=== PATIENT | male | born 1985 | race African-American/Black ===

== ENCOUNTER 2022-01-25 02:42 | Observation (INO) ==
[2022-01-25] MEDS ORDERED: SODIUM CHLORIDE 0.9% 1000ML 1,000 ML IV SCH ×2 (03:15→05:30)
[2022-01-25 03:43] LABS: Eosinophils # (auto) 0.07 K/uL (0-0.5); Hematocrit (blood only) 44.1 % (42-52); Hemoglobin 15.4 g/dL (14.0-18.0); Immature Granulocytes # (auto) 0.01 K/uL (0.00-0.02); Immature Granulocytes % (auto) 0.1 %; Lymphocytes # (auto) 2.98 K/uL (1.2-3.4); Lymphocytes % (auto) 42.2 %; Mean Corpuscular Hemoglobin 30.4 pg (25-34); Mean Corpuscular Hgb Conc 34.9 g/dL (32-36); Mean Platelet Volume 9.2 fL (7.4-10.4); Monocytes # (auto) 0.66 K/uL (0.11-0.59); Monocytes % (auto) 9.3 %; Neutrophils # (auto) 3.34 K/uL (1.4-6.5); Neutrophils % (auto) 47.4 %; Platelet Count 259 K/uL (130-400); RDW Coefficient of Variation 13.3 % (11.5-14.5); RDW Standard Deviation 42.1 fL (36.4-46.3); Red Blood Count 5.07 M/uL (4.7-6.1); White Blood Count 7.06 K/uL (4.8-10.8)
[2022-01-25 03:51] LABS: Partial Thromboplastin Ratio 1.3; Partial Thromboplastin Time 36.4 Seconds (21.0-31.0); Prothrombin Time 10.5 Seconds (9.0-12.0)
[2022-01-25 04:04] LABS: Calcium 9.3 mg/dl (8.5-10.1); Creatinine Clr Calc Pharmacy 156.8 ml/min; Est GFR (African American) 100.7 ml/min; Est GFR (Non-African American) 86.9 ml/min
[2022-01-25 04:07] LABS: Troponin I High Sensitivity 6.1 pg/ml (0-20)
[2022-01-25 04:12] LABS: Albumin Globulin Ratio 1.2 (0.9-2); Albumin Level 4.4 gm/dl (3.4-5.0); Bilirubin,Total 0.3 mg/dl (0.2-1.0); Globulin 3.8 gm/dl (2.5-4.0); Magnesium 1.9 mg/dl (1.7-2.4); Phosphorus 3.8 mg/dl (2.5-4.9); Total Protein 8.2 gm/dl (6.0-8.3)
[2022-01-25 04:28] LABS: Lyme Ab IgG w/WB Rflx Negative (Negative); Lyme Ab IgM w/WB Rflx Negative (Negative)
[2022-01-25 04:32] LABS: Appearance Urine Clear (Clear); Bilirubin Urine Negative (Negative); Blood Urine Negative (Negative); Color Urine Yellow; Glucose Urine UA Negative (Negative); Ketones Urine Negative (Negative); Leukocyte Esterase Urine Negative (Negative); Nitrite Urine Negative (Negative); Protein Urine Negative (Negative); Specific Gravity Urine 1.026 (1.000-1.030); Urobilinogen Urine Negative (Negative)
[2022-01-25] MEDS ORDERED: OPTIRAY 320 125ml IV ONE (04:46)
[2022-01-25 04:59] LABS: Amphetamines+Metham, Urine Neg (Neg); Barbiturates, Urine Neg (Neg); Benzodiazepine, Urine Neg (Neg); Cocaine, Urine Neg (Neg); MDMA (Ecstacy), Urine Neg (Neg); Methadone, Urine Neg (Neg); Opiate, Urine Neg (Neg); Phencyclidine, Urine Neg (Neg)
--- NOTE | 2022-01-25 07:00 | Emergency Department Note ---
History of Present Illness General Chief complaint: Pain (Generalized) Stated complaint: MUSCLE PAIN, CRAMPING, LOSS OF APPETITE Time Seen by Provider: 01/25/22 02:56 History of Present Illness This is a 36-year-old male presenting to the emergency department for evaluation of decreased appetite, difficulty sleeping, and body aches. The patient has a history of seizures and did have a breakthrough seizure 5 days ago. He is on Keppra and is reportedly taking his medication as prescribed. The patient states that since his breakthrough seizure he has felt worse each day. He states that approximately 5 PM, more than 8 hours prior to arrival, he felt like he had some difficulty speaking. He has been able to move his arms and legs without difficulty. He does have injury to the left side tongue from his seizure the other day that is still healing. The patient does not have any chest pain, chest tightness, or shortness of breath. No fevers or chills. He is not vaccinated against COVID-19. He rates his current discomfort an 8/10. Home Medications Medication Instructions Recorded Confirmed Type levetiracetam 1,000 mg tablet 1,000 mg PO BID 01/20/22 01/25/22 History Allergies Allergy/AdvReac Type Severity Reaction Status Date / Time No Known Allergies Allergy Verified 01/25/22 03:08 Past Med/Surg History Medical History Seizure disorder Surgical History No significant past surgical history Social History Smoking Status: Never smoker Preferred Language: Sinhala Feels Safe at Home: Yes Review of Systems A total of 10 systems reviewed and were otherwise negative Physical Exam Vital Signs Vital Signs - 24 hr 01/25/22 02:49 01/25/22 03:29 01/25/22 03:36 Temperature 36.4 C L Temperature Source Temporal Artery Scan Pulse Rate 99 H 92 H Pulse Rate [Apical] 96 H Pulse Rhythm Regular Respiratory Rate 18 21 20 Respiratory Effort / Characteristics Non-Labored Spontaneous Non-Labored Spontaneous Respiratory Depth Normal Normal Blood Pressure 147/104 H Blood Pressure [Right Arm] 130/96 Blood Pressure Mean 118 Blood Pressure Mean [Right Arm] 107 Pulse Oximetry 96 97 96 Oxygen Delivery Method Room Air Room Air Room Air Sepsis Recent Fever Within 48 Hours No Sepsis New/Unexplained Change in Mental Status No Sepsis Action Taken by Nursing No Action Required 01/25/22 05:40 01/25/22 06:00 Temperature 36.9 C Temperature Source Oral Pulse Rate Pulse Rate [Apical] 88 98 H Pulse Rhythm Respiratory Rate 20 24 Respiratory Effort / Characteristics Non-Labored Non-Labored Spontaneous Respiratory Depth Normal Normal Blood Pressure Blood Pressure [Right Arm] 134/93 151/95 H Blood Pressure Mean Blood Pressure Mean [Right Arm] 106 113 Pulse Oximetry 98 98 Oxygen Delivery Method Room Air Room Air Sepsis Recent Fever Within 48 Hours Sepsis New/Unexplained Change in Mental Status Sepsis Action Taken by Nursing VITALS: Vitals are noted on the nurse's note and reviewed by myself. Vital signs stable. GENERAL: Morbidly obese male who is having difficulty with speech. He is words are not slurred, however he seems to have difficulty finding his words. He is intermittently using text to speech on his cell phone to communicate. HEAD: Normocephalic atraumatic. EARS: External ear normal. External auditory canals clear, tympanic membranes pearly gaines without erythema or effusion bilaterally. EYES: Pupils equal round and reactive to light and accommodation. Conjunctivae without injection, sclerae without icterus. Extraocular movements intact. NOSE: Patent, turbinates without inflammation or discharge. MOUTH: Mucous membranes moist. Tonsils are not enlarged. Pharynx without erythema, blood, or exudate. Uvula midline. Airway patent. Tongue does not deviate. There is injury on the left side tongue consistent with bite from seizure last week. NECK: Supple without nuchal rigidity. No lymphadenopathy. No thyromegaly. Cervical spine is nontender. HEART: Regular rate and rhythm without murmurs gallops or rubs. LUNGS: Clear to auscultation bilaterally without wheezes, rales or rhonchi. No retractions or accessory muscle use. MUSCULOSKELETAL: No muscle atrophy, erythema, or edema noted. Full range of motion in all extremities. Strength is 5/5 throughout. No pronator drift. NEURO: Patient was alert and oriented to person place and time. Stroke scale is 2 with mild aphasia and mild dysarthria. SKIN: The skin was without rashes, erythema, edema, or bruising. Capillary refill less than 2 seconds. Course Administered Medications Discontinued Medications Sodium Chloride (Nss 1000ml) 1,000 mls @ 999 mls/hr IV .Q1H1M ROBERT Stop: 01/25/22 04:15 Last Infusion: 01/25/22 04:52 Dose: 0 mls/hr Documented by: [id number] Admin: 01/25/22 03:49 Dose: 999 mls/hr Documented by: [id number] Sodium Chloride (Nss 1000ml) 1,000 mls @ 999 mls/hr IV .Q1H1M ROBERT Stop: 01/25/22 06:30 Last Infusion: 01/25/22 06:46 Dose: 0 mls/hr Documented by: [id number] Admin: 01/25/22 05:39 Dose: 999 mls/hr Documented by: [id number] Ioversol (Optiray 320 125ml) 125 ml IV ONCE ONE Stop: 01/25/22 04:47 Last Admin: 01/25/22 04:46 Dose: 118 ml Documented by: [id number] Medical Decision Making Differential Diagnosis Differential diagnosis: Etiologies such as seizure, stroke, benign positional vertigo, labrynthitis, dehydration, hypovolemia, anemia, tumor, infection, hypoglycemia, electrolyte abnormalities, cardiac sources, toxicological sources, central neurologic proc ess, as well as others were entertained. Laboratory Data Result diagrams: 01/25/22 03:32 01/25/22 03:32 Lab Results 01/25/22 01/25/22 01/25/22 Range/Units 03:32 03:32 03:32 WBC 7.06 (4.8-10.8) K/uL RBC 5.07 (4.7-6.1) M/uL Hgb 15.4 (14.0-18.0) g/dL Hct 44.1 (42-52) % MCV 87.0 (80-100) fL MCH 30.4 (25-34) pg MCHC 34.9 (32-36) g/dL RDW Std Deviation 42.1 (36.4-46.3) fL RDW Coeff of Jackie 13.3 (11.5-14.5) % Plt Count 259 (130-400) K/uL MPV 9.2 (7.4-10.4) fL Immature Gran % (Auto) 0.1 % Neut % (Auto) 47.4 % Lymph % (Auto) 42.2 % [place] % (Auto) 9.3 % Eos % (Auto) 1.0 % Baso % (Auto) 0.0 % Neut # (Auto) 3.34 (1.4-6.5) K/uL Lymph # (Auto) 2.98 (1.2-3.4) K/uL [place] # (Auto) 0.66 H (0.11-0.59) K/uL Eos # (Auto) 0.07 (0-0.5) K/uL Baso # (Auto) 0.00 (0-0.2) K/uL Immature Gran # (Auto) 0.01 (0.00-0.02) K/uL PT (9.0-12.0) Seconds INR (0.9-1.1) APTT (21.0-31.0) Seconds PTT Ratio Sodium 135 L (136-145) mmol/L Potassium 4.0 (3.5-5.1) mmol/L Chloride 102 (98-107) mmol/L Carbon Dioxide 25 (21-32) mmol/L Anion Gap 8 (3-11) BUN 12 (6-23) mg/dl Creatinine 1.09 (0.6-1.4) mg/dl Est Cr Clr Drug Dosing 156.8 ml/min Est GFR ( Amer) 100.7 ml/min Est GFR (Non-Af Amer) 86.9 ml/min BUN/Creatinine Ratio 11.0 (10-20) Glucose 110 H (70-99(Fasting)) mg/dl Calcium 9.3 (8.5-10.1) mg/dl Phosphorus 3.8 (2.5-4.9) mg/dl Magnesium 1.9 (1.7-2.4) mg/dl Total Bilirubin 0.3 (0.2-1.0) mg/dl AST 85 H (13-39) U/L ALT 67 H (7-52) U/L Alkaline Phosphatase 98 (34-104) U/L Total Creatine Kinase 2926 H (30-223) U/L Troponin I High Sens 6.1 (0-20) pg/ml Total Protein 8.2 (6.0-8.3) gm/dl Albumin 4.4 (3.4-5.0) gm/dl Globulin 3.8 (2.5-4.0) gm/dl Albumin/Globulin Ratio 1.2 (0.9-2) Urine Color Urine Appearance (Clear) Urine pH (4.5-7.5) Ur Specific [place] (1.000-1.030) Urine Protein (Negative) Urine Glucose (UA) (Negative) Urine Ketones (Negative) Urine Blood (Negative) Urine Nitrite (Negative) Urine Bilirubin (Negative) Urine Urobilinogen (Negative) Ur Leukocyte Esterase (Negative) Urine Opiates Screen (Neg) Ur Methadone, Qual (Neg) Urine Barbiturates (Neg) Ur Phencyclidine (PCP) (Neg) U Amphetamin/Meth Scrn (Neg) MDMA (Ecstasy) Screen (Neg) U Benzodiazepines Scrn (Neg) Ur Cocaine Metabolite (Neg) U Marijuana (THC) Screen (Neg) Ethyl Alcohol mg/dL (<10.0) mg/dl Lyme Disease IgG Ab Negative (Negative) Lyme Disease IgM Ab Negative (Negative) SARS-CoV-2, RNA, NAAT (NEGATIVE) Blood Type Antibody Screen 01/25/22 01/25/22 01/25/22 Range/Units 03:32 03:32 03:32 WBC (4.8-10.8) K/uL RBC (4.7-6.1) M/uL Hgb (14.0-18.0) g/dL Hct (42-52) % MCV (80-100) fL MCH (25-34) pg MCHC (32-36) g/dL RDW Std Deviation (36.4-46.3) fL RDW Coeff of Jackie (11.5-14.5) % Plt Count (130-400) K/uL MPV (7.4-10.4) fL Immature Gran % (Auto) % Neut % (Auto) % Lymph % (Auto) % [place] % (Auto) % Eos % (Auto) % Baso % (Auto) % Neut # (Auto) (1.4-6.5) K/uL Lymph # (Auto) (1.2-3.4) K/uL [place] # (Auto) (0.11-0.59) K/uL Eos # (Auto) (0-0.5) K/uL Baso # (Auto) (0-0.2) K/uL Immature Gran # (Auto) (0.00-0.02) K/uL PT 10.5 (9.0-12.0) Seconds INR 1.0 (0.9-1.1) APTT 36.4 H (21.0-31.0) Seconds PTT Ratio 1.3 Sodium (136-145) mmol/L Potassium (3.5-5.1) mmol/L Chloride (98-107) mmol/L Carbon Dioxide (21-32) mmol/L Anion Gap (3-11) BUN (6-23) mg/dl Creatinine (0.6-1.4) mg/dl Est Cr Clr Drug Dosing ml/min Est GFR ( Amer) ml/min Est GFR (Non-Af Amer) ml/min BUN/Creatinine Ratio (10-20) Glucose (70-99(Fasting)) mg/dl Calcium (8.5-10.1) mg/dl Phosphorus (2.5-4.9) mg/dl Magnesium (1.7-2.4) mg/dl Total Bilirubin (0.2-1.0) mg/dl AST (13-39) U/L ALT (7-52) U/L Alkaline Phosphatase (34-104) U/L Total Creatine Kinase (30-223) U/L Troponin I High Sens (0-20) pg/ml Total Protein (6.0-8.3) gm/dl Albumin (3.4-5.0) gm/dl Globulin (2.5-4.0) gm/dl Albumin/Globulin Ratio (0.9-2) Urine Color Urine Appearance (Clear) Urine pH (4.5-7.5) Ur Specific [place] (1.000-1.030) Urine Protein (Negative) Urine Glucose (UA) (Negative) Urine Ketones (Negative) Urine Blood (Negative) Urine Nitrite (Negative) Urine Bilirubin (Negative) Urine Urobilinogen (Negative) Ur Leukocyte Esterase (Negative) Urine Opiates Screen (Neg) Ur Methadone, Qual (Neg) Urine Barbiturates (Neg) Ur Phencyclidine (PCP) (Neg) U Amphetamin/Meth Scrn (Neg) MDMA (Ecstasy) Screen (Neg) U Benzodiazepines Scrn (Neg) Ur Cocaine Metabolite (Neg) U Marijuana (THC) Screen (Neg) Ethyl Alcohol mg/dL < 10.0 (<10.0) mg/dl Lyme Disease IgG Ab (Negative) Lyme Disease IgM Ab (Negative) SARS-CoV-2, RNA, NAAT (NEGATIVE) Blood Type O Positive Antibody Screen NEGATIVE 01/25/22 01/25/22 01/25/22 Range/Units 03:40 Unknown Unknown WBC (4.8-10.8) K/uL RBC (4.7-6.1) M/uL Hgb (14.0-18.0) g/dL Hct (42-52) % MCV (80-100) fL MCH (25-34) pg MCHC (32-36) g/dL RDW Std Deviation (36.4-46.3) fL RDW Coeff of Jackie (11.5-14.5) % Plt Count (130-400) K/uL MPV (7.4-10.4) fL Immature Gran % (Auto) % Neut % (Auto) % Lymph % (Auto) % [place] % (Auto) % Eos % (Auto) % Baso % (Auto) % Neut # (Auto) (1.4-6.5) K/uL Lymph # (Auto) (1.2-3.4) K/uL [place] # (Auto) (0.11-0.59) K/uL Eos # (Auto) (0-0.5) K/uL Baso # (Auto) (0-0.2) K/uL Immature Gran # (Auto) (0.00-0.02) K/uL PT (9.0-12.0) Seconds INR (0.9-1.1) APTT (21.0-31.0) Seconds PTT Ratio Sodium (136-145) mmol/L Potassium (3.5-5.1) mmol/L Chloride (98-107) mmol/L Carbon Dioxide (21-32) mmol/L Anion Gap (3-11) BUN (6-23) mg/dl Creatinine (0.6-1.4) mg/dl Est Cr Clr Drug Dosing ml/min Est GFR ( Amer) ml/min Est GFR (Non-Af Amer) ml/min BUN/Creatinine Ratio (10-20) Glucose (70-99(Fasting)) mg/dl Calcium (8.5-10.1) mg/dl Phosphorus (2.5-4.9) mg/dl Magnesium (1.7-2.4) mg/dl Total Bilirubin (0.2-1.0) mg/dl AST (13-39) U/L ALT (7-52) U/L Alkaline Phosphatase (34-104) U/L Total Creatine Kinase (30-223) U/L Troponin I High Sens (0-20) pg/ml Total Protein (6.0-8.3) gm/dl Albumin (3.4-5.0) gm/dl Globulin (2.5-4.0) gm/dl Albumin/Globulin Ratio (0.9-2) Urine Color Yellow Urine Appearance Clear (Clear) Urine pH 5.0 (4.5-7.5) Ur Specific [place] 1.026 (1.000-1.030) Urine Protein Negative (Negative) Urine Glucose (UA) Negative (Negative) Urine Ketones Negative (Negative) Urine Blood Negative (Negative) Urine Nitrite Negative (Negative) Urine Bilirubin Negative (Negative) Urine Urobilinogen Negative (Negative) Ur Leukocyte Esterase Negative (Negative) Urine Opiates Screen Neg (Neg) Ur Methadone, Qual Neg (Neg) Urine Barbiturates Neg (Neg) Ur Phencyclidine (PCP) Neg (Neg) U Amphetamin/Meth Scrn Neg (Neg) MDMA (Ecstasy) Screen Neg (Neg) U Benzodiazepines Scrn Neg (Neg) Ur Cocaine Metabolite Neg (Neg) U Marijuana (THC) Screen Neg (Neg) Ethyl Alcohol mg/dL (<10.0) mg/dl Lyme Disease IgG Ab (Negative) Lyme Disease IgM Ab (Negative) SARS-CoV-2, RNA, NAAT POSITIVE A* (NEGATIVE) Blood Type Antibody Screen Imaging Data Radiologist's Impression: Preliminary Findings Only See Final Report For Complete Findings CT HEAD: Some artifact. No evidence of acute intracranial abnormality or skull fracture. Radiologist:Maria Snow M.D. Preliminary Findings Only See Final Report For Complete Findings CTA NECK: No occlusion or severe stenosis. No aneurysm or dissection. Radiologist:Maria Snow M.D. Preliminary Findings Only See Final Report For Complete Findings CTA HEAD: No large vessel occlusion or severe stenosis. No aneurysm or dissection. Radiologist:Maria Snow M.D. ECG Data Attestation: I personally reviewed and interpreted this ECG as follows: Additional Comments: Normal sinus rhythm @[address] elevation Left axis deviation Abnormal ECG When compared with ECG of 20-JAN-2022 21:33, No significant change was found MDM Narrative Physical exam and history were performed. Nursing notes, EMR, and Medication List were personally reviewed. Patient appears to have vague symptoms bringing him to the ER. He does have a recent seizure and feels worse today than he did at that point. He is reportedly taking his medication as prescribed. On exam he is without difficulty moving the extremities. Face is symmetric and tongue does not dev iate. The patient is having difficulty with finding words at times. He is able to communicate with his cell phone and using text to speech. I did discuss the case with my attending physician. IV access was established and labs were obtained. The patient was hydrated with normal saline. He was sent to CT for stroke studies. An order was placed for continuous cardiac monitoring. The monitor shows a rate of 98 with normal sinus rhythm. The patient's blood work is as above and was reviewed. He does not have a significantly elevated white blood cell count, gross anemia, bandemia, or signi ficant electrolyte imbalance. INR is 1.0. Glucose is 110. Transaminases are not diagnostic. Troponin x1 is negative. He is POSITIVE for COVID-19. He does have an elevated CK level of 2926 which certainly could explain his muscle aches and could be the result from the COVID or his seizure. Urine is without evidence of infection and drug abuse screen is negative. Alcohol is negative. Lyme is negative. CT scans were reviewed by myself and radiology showing no acute process. The patient was reevaluated multiple times over the course of his stay. His speech symptoms seem to be waxing and waning. I am unsure if this is part of a seizure process or related to his COVID infection. He continues without other identifiable neurologic deficit or weakness. Overall the patient does not ap pear well for discharge home. He was given a second liter of normal saline for presumed rhabdo. The case was discussed with the on-call hospitalist team who agreed to evaluate the patient here in the ER. Please see their dictation for further patient course, plan, disposition. The chart was completed utilizing [employer] Voice Recognition Software. Grammatical errors, random word insertions, pronoun errors, and incomplete sentences are an occasional consequence of this system due to software limitations, ambient noise, and hardware issues. Any formal questions or concerns about the content, text, or information contained within the body of this dictation should be directly addressed to the provider for clarification. . Impression & Plan Rhabdomyolysis, COVID-19, History of seizure, Difficulty with speech Discharge Plan Visit Data Chief Complaint: Pain (Generalized) Stated Complaint: MUSCLE PAIN, CRAMPING, LOSS OF APPETITE ED Provider: Tiara Bundy ED Midlevel Provider: Sourav Castañeda Discharge Problem: Rhabdomyolysis, COVID-19, History of seizure, Difficulty with speech Forms Stand Alone Forms: [facility] untapt Prescriptions Prescriptions: No Action levetiracetam 1,000 mg tablet 1,000 mg PO BID RF: 0 Referrals Referrals: Walt Liu MD [Primary Care Provider] -
--- NOTE | 2022-01-25 07:20 | CT Scan Report ---
HEAD CTA HISTORY: Abnormal speech. Stroke Like Symptoms TECHNIQUE: Multiaxial CT images of the head were performed both before and after the intravenous admi nistration of contrast to evaluate the major cerebral vessels. Maximum intensity projection images we re also obtained. A dose lowering technique was utilized adhering to the principles of ALARA. COMPARISON: None. FINDINGS: There is no mass, hematoma, midline shift, or acute infarct. Visualized intracranial supervisor [employer] [place] al carotid arteries, distal vertebral arteries, and basilar artery are widely patent. There is no sig nificant stenosis, occlusion, or aneurysm seen within the bilateral ACAs, MCAs, or technician assistant. IMPRESSION: No significant stenosis, occlusion, or aneurysm within the [place]. ACT 112: Negative or not required by law. Electronically signed by: Mc Becker M.D. 01/25/2022 7:19 AM
--- NOTE | 2022-01-25 07:31 | CT Scan Report ---
CT head/brain wo con CLINICAL HISTORY: Stroke Like Symptoms Technique: Contiguous axial CT images of the head were acquired from the base of the skull to the pravin kylee without intravenous contrast administration. Images were viewed in brain, subdural and bone [facility] . Automated dose lowering techniques and/or adjustment according to patient size were utilized for this exam. Comparison: None available at the time of this dictation. Findings: The ventricles, basal cisterns, and cerebral sulci are normal. There is no acute intracranial hemorrh age or evidence of acute territorial infarction. Neither mass effect, shift of the midline structures , nor abnormal extra-axial fluid collections are shown. Imaged portions of the paranasal sinuses and mastoid air cells are clear. The orbits appear normal. There are no acute fractures of the calvaria or scalp swelling. Impression: No acute intracranial hemorrhage, no evidence of acute territorial infarction or other acute intracra nial disease process. ACT 112: Negative or not required by law. Electronically signed by: Jericho Enciso M.D. 01/25/2022 7:28 AM
--- NOTE | 2022-01-25 07:32 | CT Scan Report ---
CT angio neck with con CLINICAL HISTORY: Stroke Like Symptoms TECHNIQUE: CT angiography of the head was performed following intravenous administration of iodinate d contrast. Coronal and sagittal MIPS were obtained from the axial data set and were submitted for re view. Automated dose lowering techniques and/or adjustment according to patient size were utilized f or this examination. All measurements were calculated based on NASCET criteria. Comparison: Comparison is made to CT head without contrast 01/25/2022 FINDINGS: Lungs and soft tissues are unremarkable. CTA Neck: A 3 vessel aortic arch is shown. There is no significant atherosclerotic plaque in the aor tic arch or the origins of the innominate, left common carotid, and left subclavian arteries. The c ommon carotid, external carotid, cervical segments of the internal carotid arteries, and the cervical segments of the vertebral arteries are patent without hemodynamically significant stenosis. The left vertebral artery is dominant. IMPRESSION: No occlusion, hemodynamically significant stenosis, or dissection in the major cervical arteries. Assessment of stenosis of the internal carotid arteries is based on NASCET criteria. ACT 112: Negative or not required by law. Electronically signed by: Jericho Enciso M.D. 01/25/2022 7:31 AM
--- NOTE | 2022-01-25 08:17 | History & Physical Report ---
Date of Service January 25, 2022 Assessment & Plan (1) Rhabdomyolysis: Plan: 36 yo generally healthy male with a PMH of seizure disorder, in ER for generalized illness, found to have rhabdomyolysis and COVID19. Rhabdomyolysis - Total CK 2962 on admission, received 2L NS in ER - 250 cc/hr LR ordered for aggressive fluid treatment - repeat CK and BMP 3PM today - monitor - likely secondary to stasis with feeling ill and active COVID19 infection COVID19 - positive PCR on 01/25/22 - not hypoxic, unvaccinated - will monitor vitals signs and provide supportive care. No aggressive treatments at this time. - pulmonary toilet - O2 as needed for sat <90 Seizure Disorder - continue BID keppra 1g per home regimen DVT ppx: lovenox 40 mg BID due to elevated BMI FEN/GI: heart healthy diet Bowel regimen: prn Code Status: full code Dispo: home with resolution of Rhabdo (2) COVID-19: (3) History of seizure: (4) Difficulty with speech: (5) No significant past surgical history: History of Present Illness Primary Care Provider: Walt Liu MD 36 yo M with PMH seizure disorder who came to the ER for general feelings of feeling unwell. He recently came to the ER 5 days ago for having breakthrough seizures and was sent home after getting IV keppra and improving. He has difficulty recalling and explaining what symptoms brought him to the ER but is able to answer that he is not having any chills, fevers, night sweats, pain, SOB, chest pain, numbness, tingling, weakness, difficulty with memory. He has been able to take his medications at home. He tested positive for COVID in the ER today and is not vaccinated for COVID. He denies any history of medical problems other than seizure disorder for the past 11 years. No drug/alcohol history. No pertinent family history. Allergies Allergy/AdvReac Type Severity Reaction Status Date / Time No Known Allergies Allergy Verified 01/25/22 03:08 Home Medications Medication Instructions Recorded Confirmed Type levetiracetam 1,000 mg tablet 1,000 mg PO BID 01/20/22 01/25/22 History Past Med/Surg History Medical History Seizure disorder Surgical History No significant past surgical history Social History Smoking Status: Never smoker Preferred Language: Greek Feels Safe at Home: Yes Review of Systems Review of Systems: All systems reviewed & are unremarkable except as noted in Subjective Physical Exam Physical Exam: Constitutional: obese, in no apparent distress, sitting comfortably in bed. Eyes: EOMI, pupils equal and reactive bilaterally, no scleral icterus Cardiac: RRR, no murmurs, gallops or rubs. Normal S1, S2 Pulm: CTA BL, no wheezes, rhonchi, crackles or rubs, moving air well throughout both lungs Abd: soft, somewhat distended. generally tender in LUQ and LLQ. normal bowel sounds, no rebound or guarding Extremities: 2+ peripheral pulses, no edema Neuro: no focal deficits, moving all 4 limbs, A&Ox3. Some slurring of speech and difficulty with word finding. coherent speech though getting lost in sentences. negative finger to nose test. sensation equal BL. Results & Data Results & Data ([facility]) Vital Signs (Past 12 Hours) Vital Signs Temp Pulse Pulse Resp BP BP Pulse Ox 01/25/22 06:00 98 H 24 151/95 H 98 01/25/22 05:40 36.9 C 88 20 134/93 98 01/25/22 03:36 92 H 20 96 01/25/22 03:29 96 H 21 130/96 97 01/25/22 02:49 36.4 C L 99 H 18 147/104 H 96 Laboratory Results 01/25/22 01/25/22 01/25/22 Range/Units Unknown Unknown 03:40 WBC (4.8-10.8) K/uL RBC (4.7-6.1) M/uL Hgb (14.0-18.0) g/dL Hct (42-52) % MCV (80-100) fL MCH (25-34) pg MCHC (32-36) g/dL RDW Std Deviation (36.4-46.3) fL RDW Coeff of Jackie (11.5-14.5) % Plt Count (130-400) K/uL MPV (7.4-10.4) fL Immature Gran % (Auto) % Neut % (Auto) % Lymph % (Auto) % [place] % (Auto) % Eos % (Auto) % Baso % (Auto) % Neut # (Auto) (1.4-6.5) K/uL Lymph # (Auto) (1.2-3.4) K/uL [place] # (Auto) (0.11-0.59) K/uL Eos # (Auto) (0-0.5) K/uL Baso # (Auto) (0-0.2) K/uL Immature Gran # (Auto) (0.00-0.02) K/uL PT (9.0-12.0) Seconds INR (0.9-1.1) APTT (21.0-31.0) Seconds PTT Ratio Sodium (136-145) mmol/L Potassium (3.5-5.1) mmol/L Chloride (98-107) mmol/L Carbon Dioxide (21-32) mmol/L Anion Gap (3-11) BUN (6-23) mg/dl Creatinine (0.6-1.4) mg/dl Est Cr Clr Drug Dosing ml/min Est GFR ( Amer) ml/min Est GFR (Non-Af Amer) ml/min BUN/Creatinine Ratio (10-20) Glucose (70-99(Fasting)) mg/dl Calcium (8.5-10.1) mg/dl Phosphorus (2.5-4.9) mg/dl Magnesium (1.7-2.4) mg/dl Total Bilirubin (0.2-1.0) mg/dl AST (13-39) U/L ALT (7-52) U/L Alkaline Phosphatase (34-104) U/L Total Creatine Kinase (30-223) U/L Troponin I High Sens (0-20) pg/ml Total Protein (6.0-8.3) gm/dl Albumin (3.4-5.0) gm/dl Globulin (2.5-4.0) gm/dl Albumin/Globulin Ratio (0.9-2) Urine Color Yellow Urine Appearance Clear (Clear) Urine pH 5.0 (4.5-7.5) Ur Specific [place] 1.026 (1.000-1.030) Urine Protein Negative (Negative) Urine Glucose (UA) Negative (Negative) Urine Ketones Negative (Negative) Urine Blood Negative (Negative) Urine Nitrite Negative (Negative) Urine Bilirubin Negative (Negative) Urine Urobilinogen Negative (Negative) Ur Leukocyte Esterase Negative (Negative) Urine Opiates Screen Neg (Neg) Ur Methadone, Qual Neg (Neg) Urine Barbiturates Neg (Neg) Ur Phencyclidine (PCP) Neg (Neg) U Amphetamin/Meth Scrn Neg (Neg) MDMA (Ecstasy) Screen Neg (Neg) U Benzodiazepines Scrn Neg (Neg) Ur Cocaine Metabolite Neg (Neg) U Marijuana (THC) Screen Neg (Neg) Ethyl Alcohol mg/dL (<10.0) mg/dl Lyme Disease IgG Ab (Negative) Lyme Disease IgM Ab (Negative) SARS-CoV-2, RNA, NAAT POSITIVE A* (NEGATIVE) Blood Type Antibody Screen 01/25/22 01/25/22 01/25/22 Range/Units 03:32 03:32 03:32 WBC (4.8-10.8) K/uL RBC (4.7-6.1) M/uL Hgb (14.0-18.0) g/dL Hct (42-52) % MCV (80-100) fL MCH (25-34) pg MCHC (32-36) g/dL RDW Std Deviation (36.4-46.3) fL RDW Coeff of Jackie (11.5-14.5) % Plt Count (130-400) K/uL MPV (7.4-10.4) fL Immature Gran % (Auto) % Neut % (Auto) % Lymph % (Auto) % [place] % (Auto) % Eos % (Auto) % Baso % (Auto) % Neut # (Auto) (1.4-6.5) K/uL Lymph # (Auto) (1.2-3.4) K/uL [place] # (Auto) (0.11-0.59) K/uL Eos # (Auto) (0-0.5) K/uL Baso # (Auto) (0-0.2) K/uL Immature Gran # (Auto) (0.00-0.02) K/uL PT 10.5 (9.0-12.0) Seconds INR 1.0 (0.9-1.1) APTT 36.4 H (21.0-31.0) Seconds PTT Ratio 1.3 Sodium (136-145) mmol/L Potassium (3.5-5.1) mmol/L Chloride (98-107) mmol/L Carbon Dioxide (21-32) mmol/L Anion Gap (3-11) BUN (6-23) mg/dl Creatinine (0.6-1.4) mg/dl Est Cr Clr Drug Dosing ml/min Est GFR ( Amer) ml/min Est GFR (Non-Af Amer) ml/min BUN/Creatinine Ratio (10-20) Glucose (70-99(Fasting)) mg/dl Calcium (8.5-10.1) mg/dl Phosphorus (2.5-4.9) mg/dl Magnesium (1.7-2.4) mg/dl Total Bilirubin (0.2-1.0) mg/dl AST (13-39) U/L ALT (7-52) U/L Alkaline Phosphatase (34-104) U/L Total Creatine Kinase (30-223) U/L Troponin I High Sens (0-20) pg/ml Total Protein (6.0-8.3) gm/dl Albumin (3.4-5.0) gm/dl Globulin (2.5-4.0) gm/dl Albumin/Globulin Ratio (0.9-2) Urine Color Urine Appearance (Clear) Urine pH (4.5-7.5) Ur Specific [place] (1.000-1.030) Urine Protein (Negative) Urine Glucose (UA) (Negative) Urine Ketones (Negative) Urine Blood (Negative) Urine Nitrite (Negative) Urine Bilirubin (Negative) Urine Urobilinogen (Negative) Ur Leukocyte Esterase (Negative) Urine Opiates Screen (Neg) Ur Methadone, Qual (Neg) Urine Barbiturates (Neg) Ur Phencyclidine (PCP) (Neg) U Amphetamin/Meth Scrn (Neg) MDMA (Ecstasy) Screen (Neg) U Benzodiazepines Scrn (Neg) Ur Cocaine Metabolite (Neg) U Marijuana (THC) Screen (Neg) Ethyl Alcohol mg/dL < 10.0 (<10.0) mg/dl Lyme Disease IgG Ab (Negative) Lyme Disease IgM Ab (Negative) SARS-CoV-2, RNA, NAAT (NEGATIVE) Blood Type O Positive Antibody Screen NEGATIVE 01/25/22 01/25/2222 Range/Units 03:32 03:32 03:32 WBC 7.06 (4.8-10.8) K/uL RBC 5.07 (4.7-6.1) M/uL Hgb 15.4 (14.0-18.0) g/dL Hct 44.1 (42-52) % MCV 87.0 (80-100) fL MCH 30.4 (25-34) pg MCHC 34.9 (32-36) g/dL RDW Std Deviation 42.1 (36.4-46.3) fL RDW Coeff of Jackie 13.3 (11.5-14.5) % Plt Count 259 (130-400) K/uL MPV 9.2 (7.4-10.4) fL Immature Gran % (Auto) 0.1 % Neut % (Auto) 47.4 % Lymph % (Auto) 42.2 % [place] % (Auto) 9.3 % Eos % (Auto) 1.0 % Baso % (Auto) 0.0 % Neut # (Auto) 3.34 (1.4-6.5) K/uL Lymph # (Auto) 2.98 (1.2-3.4) K/uL [place] # (Auto) 0.66 H (0.11-0.59) K/uL Eos # (Auto) 0.07 (0-0.5) K/uL Baso # (Auto) 0.00 (0-0.2) K/uL Immature Gran # (Auto) 0.01 (0.00-0.02) K/uL PT (9.0-12.0) Seconds INR (0.9-1.1) APTT (21.0-31.0) Seconds PTT Ratio Sodium 135 L (136-145) mmol/L Potassium 4.0 (3.5-5.1) mmol/L Chloride 102 (98-107) mmol/L Carbon Dioxide 25 (21-32) mmol/L Anion Gap 8 (3-11) BUN 12 (6-23) mg/dl Creatinine 1.09 (0.6-1.4) mg/dl Est Cr Clr Drug Dosing 156.8 ml/min Est GFR ( Amer) 100.7 ml/min Est GFR (Non-Af Amer) 86.9 ml/min BUN/Creatinine Ratio 11.0 (10-20) Glucose 110 H (70-99(Fasting)) mg/dl Calcium 9.3 (8.5-10.1) mg/dl Phosphorus 3.8 (2.5-4.9) mg/dl Magnesium 1.9 (1.7-2.4) mg/dl Total Bilirubin 0.3 (0.2-1.0) mg/dl AST 85 H (13-39) U/L ALT 67 H (7-52) U/L Alkaline Phosphatase 98 (34-104) U/L Total Creatine Kinase 2926 H (30-223) U/L Troponin I High Sens 6.1 (0-20) pg/ml Total Protein 8.2 (6.0-8.3) gm/dl Albumin 4.4 (3.4-5.0) gm/dl Globulin 3.8 (2.5-4.0) gm/dl Albumin/Globulin Ratio 1.2 (0.9-2) Urine Color Urine Appearance (Clear) Urine pH (4.5-7.5) Ur Specific [place] (1.000-1.030) Urine Protein (Negative) Urine Glucose (UA) (Negative) Urine Ketones (Negative) Urine Blood (Negative) Urine Nitrite (Negative) Urine Bilirubin (Negative) Urine Urobilinogen (Negative) Ur Leukocyte Esterase (Negative) Urine Opiates Screen (Neg) Ur Methadone, Qual (Neg) Urine Barbiturates (Neg) Ur Phencyclidine (PCP) (Neg) U Amphetamin/Meth Scrn (Neg) MDMA (Ecstasy) Screen (Neg) U Benzodiazepines Scrn (Neg) Ur Cocaine Metabolite (Neg) U Marijuana (THC) Screen (Neg) Ethyl Alcohol mg/dL (<10.0) mg/dl Lyme Disease IgG Ab Negative (Negative) Lyme Disease IgM Ab Negative (Negative) SARS-CoV-2, RNA, NAAT (NEGATIVE) Blood Type Antibody Screen Code Status & VTE Plan VTE Prophylaxis Plan VTE Prophylaxis will be ordered: Yes Supervising Physician Co-Signing Physician Notes I personally examined the patient and verified all travis points of history and exam, discussed case, and agree with decision making with Dr Nicolas no further seizures since 01/20. just feels unwell vitals noted fatigued but nad heent nc at mmm breathing unlabored no accessory muscles good effort skin no rashes no pallor or icterus neuro no focal deficits mild covid, mild rhabdo, transaminitis likely from both - supportive care, fluids. fortunately no indications (but symptoms, vitals, or risk factors) for covid specific interventions. otherwise as above Resident Activity Tracking Resident Involvement: Resident Care Provided Care Provided: Adult Hospital Medicine
[2022-01-25] MEDS ORDERED: ACETAMINOPHEN 325 MG TAB PO PRN (08:53)
[2022-01-25] MEDS ORDERED: MAGNESIUM HYDROXIDE SUSP 30 ML UDC PO PRN (08:53)
[2022-01-25] MEDS ORDERED: ONDANSETRON INJ 2 MG/ML 2 ML VIAL IV PRN (08:53)
[2022-01-25] MEDS ORDERED: ALUMINUM/MAGNESIUM SUSP 30 ML UDC PO PRN (08:53)
[2022-01-25] MEDS ORDERED: FLUTICASONE PROPIONATE NA SPR 16 GM BTL PRN (09:42)
[2022-01-25] MEDS: levETIRAcetam 500 MG TAB PO SCH ×2 (11:29→22:38)
[2022-01-25] MEDS: ENOXAPARIN INJ 40 MG/0.4 ML SYR SQ SCH ×2 (11:29→22:36)
[2022-01-25] MEDS: LACTATED RINGER'S 1,000 ML IV SCH ×3 (11:30→19:58)
--- NOTE | 2022-01-25 14:51 | Electrocardiogram Report ---
Test Reason : Blood Pressure : / mmHG Vent. Rate : 092 BPM Atrial Rate : 092 BPM P-R Int : 140 ms QRS Dur : 080 ms QT Int : 352 ms P-R-T Axes : 032 -36 021 degrees QTc Int : 435 ms Normal sinus rhythm Left axis deviation Poor R wave progression, consider anterior VA vs. lead placement vs. LVH Abnormal ECG When compared with ECG of 20-JAN-2022 21:33, No significant change was found Confirmed by Walt Harris [id number]) on 01/25/2022 2:50:59 PM Referred By: REFERRED SELF Confirmed By:Walt Harris
[2022-01-25 15:12] LABS: BUN Creatinine Ratio 8.9 (10-20); Calcium 7.8 mg/dl (8.5-10.1); Creatinine Clr Calc Pharmacy 216.4 ml/min; Est GFR (African American) 133.9 ml/min; Est GFR (Non-African American) 115.5 ml/min; Potassium 4.2 mmol/L (3.5-5.1)
--- NOTE | 2022-01-25 16:28 | Billing Data ---
Date of Service January 25, 2022 Coding Level of Care Code 53241 Initial Inpt Care Lvl 2
[2022-01-25] MEDS: guaiFENesin 600 MG TABCR PO SCH (22:37)
[2022-01-26] MEDS: LACTATED RINGER'S 1,000 ML IV SCH ×4 (00:16→13:29)
--- NOTE | 2022-01-26 06:14 | Discharge Summary ---
Date of Service January 26, 2022 Admission HPI Per Admitting Provider 36 yo M with H seizure disorder who came to the ER for general feelings of feeling unwell. He recently came to the ER 5 days ago for having breakthrough seizures and was sent home after getting IV keppra and improving. He has difficulty recalling and explaining what symptoms brought him to the ER but is able to answer that he is not having any chills, fevers, night sweats, pain, SOB, chest pain, numbness, tingling, weakness, difficulty with memory. He has been able to take his medications at home. He tested positive for COVID in the ER today and is not vaccinated for COVID. He denies any history of medical problems other than seizure disorder for the past 11 years. No drug/alcohol history. No pertinent family history. Admission Exam Per Admitting Provider Constitutional: obese, in no apparent distress, sitting comfortably in bed. Eyes: EOMI, pupils equal and reactive bilaterally, no scleral icterus Cardiac: RRR, no murmurs, gallops or rubs. Normal S1, S2 Pulm: CTA BL, no wheezes, rhonchi, crackles or rubs, moving air well throughout both lungs Abd: soft, somewhat distended. generally tender in LUQ and LLQ. normal bowel sounds, no rebound or guarding Extremities: 2+ peripheral pulses, no edema Neuro: no focal deficits, moving all 4 limbs, A&Ox3. Some slurring of speech and difficulty with word finding. coherent speech though getting lost in sentences. negative finger to nose test. sensation equal BL. Principal Diagnosis COVID-19, mild rhabdomyolysis Discharge Exam General: 36-year old male who is alert, oriented, and appears in no acute distress. HEENT: NCAT. - Eyes - Sclera are white, anicteric, and without injection. - Mouth - MMM - Neck - supple, no appreciable JVD Cardiac: Normal rate and regular rhythm; S1 and S2 present with no murmurs, rubs, or gallops. Pulmonary: Good respiratory effort with symmetric expansion of the chest. No use of accessory muscles. Lungs were clear to auscultation bilaterally with no crackles or wheezes. Abdominal: Normoactive bowel sounds. Abdomen was soft, nondistended, and non- tender to palpation. Extremities: Upper and lower extremities are warm and well perfused. No peripheral edema in the lower extremities bilaterally Discharge Data Allergies Allergy/AdvReac Type Severity Reaction Status Date / Time No Known Allergies Allergy Verified 01/25/22 03:08 Consultations 01/25/22 07:15 ED Decision to Admit Stat Ordered Studies 01/25/22 03:05 CT angio head w con Urgent IMPRESSION: No significant stenosis, occlusion, or aneurysm within the [place]. CT angio neck with con Urgent IMPRESSION: No occlusion, hemodynamically significant stenosis, or dissection in the major cervical arteries. Assessment of stenosis of the internal carotid arteries is based on NASCET criteria. CT head/brain wo con Urgent Impression: No acute intracranial hemorrhage, no evidence of acute territorial infarction or other acute intracranial disease process. Hospital Course (1) Rhabdomyolysis: 36 yo generally healthy male with a PMH of seizure disorder, in ER for generalized illness, found to have rhabdomyolysis and COVID19. Rhabdomyolysis - Total CK 2962 on admission - received aggressive IV hydration while here - by discharge, CK level at: 1240 - likely secondary to resolving level from recent seizure, stasis with feeling ill, and active COVID19 infection - recommend considering CK and BMP recheck w/i 5-7 days COVID19 - Mild - positive PCR on 01/25/22 - not hypoxic, minimal respiratory symptoms unvaccinated - encourage vaccination after discharge -- patient interested Seizure Disorder - continue BID keppra 1g per home regimen Code: Full (2) COVID-19: (3) History of seizure: (4) Difficulty with speech: (5) No significant past surgical history: Total Time Total Time Spent Total Time Spent (In Minutes): <30 Discharge Plan Discharge Items Patient Disposition: Home - Self-Care Reason For Visit: SPEECH DIFFICULTY Discharge Diagnosis: COVID-19 rhabdomyolysis Activity: Per Instructions section Non-emergency contact: Primary Care Provider Call non-emergency contact if: you have any medication questions, your symptoms worsen, your pain is not controlled and your temperature is above 101 Follow-up/Referrals: Walt Liu MD [Primary Care Provider] - 02/01/22 10:40 am Diet: Regular Addtl Attending Provider Instructions: You are seen in [facility] for evaluation of fatigue/feeling unwell. Upon your arrival here, you underwent several tests to determine the cause of the symptoms. You were found to be positive for COVID-19, and to have evidence of very mild muscle breakdown on the labs. Thankfully, with regards to your COVID, you did not require any oxygen therapy, and your vital signs demonstrated stability while here. Despite this, it is not uncommon that people feel fatigued, under the weather, and "brain fog" during this illness. People generally show a good recovery within the days/weeks following their illness. With regards to the labs that demonstrated mild muscle breakdown, this is not uncommonly seen in individuals who are ill, not moving a lot, and if had recent seizures. Thankfully, with aggressive hydration through your IV, you demonstrated a very good recovery on labs. Your kidney function remained stable during this illness. Muscles are incredible piece of tissue in the regenerate well into very fast --your recovery from this will be excellent. Please remember that for the next 5 days, you should consume approx. 3L of water to ensure your kidneys stay hydrated and can clear this muscle product. Please note the following medication additions/changes/deletions: None. If you feel you are developing mild respiratory symptoms, you can consider utilization of Flonase, Mucinex, nasal sprays (saline, such as Rosa M pot). Please follow-up with your primary care physician within 1 to 2 weeks to review this visit. In the interim, if you experience any worsening body pain, fevers, chills, shortness of breath, cough, nausea, vomiting, feeling like you are to pass out, or other worrisome symptoms, such as darkly discolored urine, please seek medical attention; if your symptoms are severe, please report to the ER for immediate evaluation. Is a pleasure for caring for you while here, we wish you all the best in your recovery. Pending Studies at Discharge: No Stand-Alone Forms: [facility] [employer], Smoking Cessation Medications and DC Order Prescriptions: Continued levetiracetam 1,000 mg tablet 1,000 mg PO BID RF: 0 Discharge Orders: Discharge Order (Routine); Ordered 01/26/22 Ordered By: Francisco Gee/Other Patient Handouts: Rhabdomyolysis Admission Data Admit Date/Time: 01/25/22 08:01 Attending Provider: Francisco Arroyo Admit Provider: Bailey Nicolas Primary Care Provider: Walt Liu Other Providers: Francisco Arroyo Supervising Physician Co-Signing Physician Notes I personally examined the patient and verified all travis points of history and exam, discussed case, and agree with decision making with Dr Barnard feeling better less achy feels up to getting home vitals noted nad heent nc at mmm breathing unlabored no accessory muscles good effort skin no rashes no pallor or icterus neuro no focal deficits myalgias - initially post-ictal, then transitioned to covid related. mild rhabd o - fluids - improved. no serious or concering findings w covid -- safe/stable for home otherwise as above Resident Activity Tracking Resident Involvement: Resident Care Provided Care Provided: Adult Hospital Medicine
[2022-01-26 07:12] LABS: BUN Creatinine Ratio 8.2 (10-20); Calcium 8.4 mg/dl (8.5-10.1); Creatinine Clr Calc Pharmacy 174.7 ml/min; Est GFR (African American) 115.9 ml/min; Potassium 4.4 mmol/L (3.5-5.1)
--- NOTE | 2022-01-26 08:27 | Hospitalist Progress Note ---
Date of Service January 26, 2022 Assessment & Plan (1) Rhabdomyolysis: Plan: 36 yo generally healthy male with a PMH of seizure disorder, in ER for generalized illness, found to have rhabdomyolysis and COVID19. Rhabdomyolysis - Total CK 2962 on admission --> nicely downtrending < 1500 since then - continue aggressive IV hydration while here - likely secondary to resolving level from recent seizure, stasis with feeling ill, and active COVID19 infection - thankfully minimal sequelae on exam and reported symptoms -- seems to be subclinical COVID19 - Mild - positive PCR on 01/25/22 - not hypoxic, minimal respiratory symptoms unvaccinated - encourage vaccination after discharge -- patient interested - mucociliary clearance prn Seizure Disorder - continue BID keppra 1g per home regimen - check level Code: Full Dispo:MS + isolation precautions w/ COVID Diet: Regular PPX: lovenox 40 bid given BMI (2) COVID-19: (3) History of seizure: (4) Difficulty with speech: (5) No significant past surgical history: Admission and Anticipated Discharge Date Admission Date: January 25, 2022 Subjective Feeling better this morning. Eager to leave the hospital. Denies any shortness of breath. Does endorse some congestion. Still feeling like he does not have 100% mental clarity, but is certainly improved since being here. Denies any chest pain, palpitations, cough. Good appetite, no nausea or vomiting. Review of Systems Review of Systems: As per HPI Physical Exam Physical Exam: General: 36-year old male who is alert, oriented, and appears in no acute distress. HEENT: NCAT. - Eyes - Sclera are white, anicteric, and without injection. - Mouth - MMM - Neck - supple, no appreciable JVD Cardiac: Normal rate and regular rhythm; S1 and S2 present with no murmurs, rubs, or gallops. Pulmonary: Good respiratory effort with symmetric expansion of the chest. No use of accessory muscles. Lungs were clear to auscultation bilaterally with no crackles or wheezes. Abdominal: Normoactive bowel sounds. Abdomen was soft, nondistended, and non- tender to palpation. Extremities: Upper and lower extremities are warm and well perfused. UE, LE strength 5/5. Results & Data Results & Data ([facility]) Vital Signs (Past 12 Hours) Vital Signs Temp Pulse Resp BP Pulse Ox 05/24/22 23:06 36.9 C 94 H 18 138/88 96 Resident Activity Tracking Resident Involvement: Resident Care Provided Care Provided: Adult Hospital Medicine
[2022-01-26] MEDS: levETIRAcetam 500 MG TAB PO SCH (09:07)
[2022-01-26] MEDS: guaiFENesin 600 MG TABCR PO SCH (09:07)
[2022-01-26] MEDS: ENOXAPARIN INJ 40 MG/0.4 ML SYR SQ SCH (09:07)
--- NOTE | 2022-01-26 15:14 | Billing Data ---
Date of Service January 26, 2022 Coding Level of Care Code D/C DAY MANAGEMENT <30 MINS
== END 2022-01-26 16:31 | disposition home or self-care (01) | DRG 178 ==
LOC: ED 02:42 → INTOOBSV 08:01 → EDINP 08:01 → 3N 19:12

== ENCOUNTER 2022-02-01 20:59 | Observation (INO) ==
--- NOTE | 2022-02-01 21:31 | Emergency Department Note ---
Impression & Plan COVID-19, Suicidal ideation, Homicidal behavior ED Provider Note Name: DAVID TRINIDAD Age: 36 Sex: M Arrives Via: Walk-In Informant: Patient ED Provider: Vladimir Nicolas MD Chief Complaint: Mental Health Evaluation Impression: As Per Impressions Above Medical Decision Makin old male with a history of mental health disorder and previous hospitaliz ations arrives with worsening suicidal ideation and homicidal ideation against the people who work at his homeless assisted. Patient with no evidence of attempt of harm to himself and work-up thus negative. He is COVID-positive and has had about 9 or 10 days of COVID infection. He was discussed with the hospitalist as per policy and they will bring him in for further management. Patient calm cooperative and no issues throughout his stay. She was given his nightly dose of Keppra. Prior Medical Record and Triage/Nursing Notes reviewed by Me Additional history obtained from chart Differentials:Mood disorder, infection, hypoglycemia, electrolyte abnormal ities, cardiac sources, intracerebral event, toxicologic, trauma, neurologic, as well as other pathologies. Vital Signs: reviewed and remarkable for no significant abnormalities Interventions: Keppra 1000mg PO Labs:Reviewed and remarkable for +Covid Consults:Hospitalist Plan: Disposition:Hospitalization. Condition: Good History of Present Illness:36-year-old male arrives for evaluation of suicidal ideation. Patient states that he has become increasingly angry and upset at the staff at his homeless assisted. He notes this is because they do not take his seizure disorder seriously. This is led him to become increasingly suicidal with thoughts of harming himself. He is also having thoughts of harming others though does not have a plan. He does note that he would likely harm the staff if this continues to get worse. He feels he needs to be admitted to the psychiatric unit as he has had in the past to get things under control. He is not currently on any antipsychotics. He is on Keppra for long-term seizure disorder. He says his last seizure was about 2 weeks ago. He states that the staff at that time did not call 911 and did not take him seriously. Patient denies any headache, neck pain does not that starting on January 21 or he started having sore throat, shortness of breath, cough, congestion, fevers and g eneralized aches and pains. He tested positive for COVID a few days later. He denies any current symptoms other than a mild exhaustion. Denies any current chest pain, shortness of breath, syncope, headache, neck pain, abdominal pain, nausea, vomiting, fevers, chills, urinary/bowel symptoms, leg swelling or any other signs or symptoms. He takes no medications. He has no medications prior to arrival. Nothing seems to make any of this better or worse. He notes a long history of psychiatric issues including a 6-month hospitalization in [place] about 2 years ago. He has been living in [facility] for the last year or so after moving appear to be closer to family though states that they no longer care about him. ROS: See above HPI for pertinent positives & negatives. A total of 10 systems reviewed and were otherwise negative. Past Medical History:Seizures Past Surgical History:Denies previous surgery Family History:Brother had seizures Social History:Homeless, no smoking, no drugs, no alcohol use Home Medications:Keppra Allergies:NKDA Vitals:Blood Pressure: 177/105, Pulse 114, RR 18, T 36.8C, O2 91% on RA Physical Exam: GENERAL: Patient is upset appearing and in mild distress. EYES: No scleral icterus, unremarkable pupils. ENT: Mucous membranes moist, no nasal congestion. NECK: No masses appreciated, nomeningismus, trachea is midline. RESPIRATORY: No dyspnea. Clear to auscultation and equal bilaterally. No wheeze, no rhonchi. CARDIOVASCULAR: Regular rate and rhythm.No murmurs, rubs, gallops appreciated. GASTROINTESTINAL: Abdomen soft, non-tender, no peritonitis.Bowel sounds positive.No masses appreciated. BACK: No midline tenderness, no CVA tenderness EXTREMITIES: Normal motion all extremities, no cyanosis, no edema. NEUROLOGIC: Alert and oriented, no acute motor or sensory deficits, no focal weakness, cranial nerves grossly intact. SKIN: No rash, no jaundice, no diaphoresis. PSYCH: Upset, depressed, admits suicidal ideation and homicidal ideation without plan GCS: 15 ED Course: Times/Reassessments: stable, calmed down, no distress Vladimir Nicolas MD Past Med/Surg History Medical History Seizure disorder Surgical History No significant past surgical history Social History Smoking Status: Never smoker Hx Alcohol Use: No Hx Substance Use: No Preferred Language: Macanese Communication Ability: Effective Mechanical Manager Required: No Beliefs That Will Affect Care: None Current Living Situation: Homeless Current Living Situation Comment: [facility] Feels Safe at Home: Yes Assistive Devices: None Allergies Allergies Allergy/AdvReac Type Severity Reaction Status Date / Time Fish Containing Products AdvReac Mild throws up Verified 02/02/22 12:51 Home Meds Home Medications Medication Instructions Recorded Confirmed levetiracetam 1,000 mg tablet 1,000 mg PO HS 01/20/22 02/02/22 levetiracetam 500 mg tablet 1,500 mg PO QAM 02/02/22 02/02/22 Results & Data (ED) Vital Signs Vital Signs - 24 hr 02/01/22 21:01 Pulse Rate 114 H Respiratory Rate 18 Blood Pressure 177/105 H Blood Pressure Mean 129 Pulse Oximetry 91 Sepsis New/Unexplained Change in Mental Status No Sepsis Action Taken by Nursing No Action Required Laboratory Data Result diagrams: 02/01/22 21:40 02/01/22 21:40 Lab Results 02/01/22 02/01/22 02/01/22 Range/Units 21:40 21:40 21:40 WBC 9.80 (4.8-10.8) K/uL RBC 5.38 (4.7-6.1) M/uL Hgb 15.8 (14.0-18.0) g/dL Hct 46.0 (42-52) % MCV 85.5 (80-100) fL MCH 29.4 (25-34) pg MCHC 34.3 (32-36) g/dL RDW Std Deviation 41.1 (36.4-46.3) fL RDW Coeff of Jackie 13.1 (11.5-14.5) % Plt Count 360 (130-400) K/uL MPV 9.3 (7.4-10.4) fL Immature Gran % (Auto) 0.2 % Neut % (Auto) 60.0 % Lymph % (Auto) 32.4 % [place] % (Auto) 5.9 % Eos % (Auto) 1.3 % Baso % (Auto) 0.2 % Neut # (Auto) 5.87 (1.4-6.5) K/uL Lymph # (Auto) 3.18 (1.2-3.4) K/uL [place] # (Auto) 0.58 (0.11-0.59) K/uL Eos # (Auto) 0.13 (0-0.5) K/uL Baso # (Auto) 0.02 (0-0.2) K/uL Immature Gran # (Auto) 0.02 (0.00-0.02) K/uL Sodium 136 (136-145) mmol/L Potassium 4.0 (3.5-5.1) mmol/L Chloride 105 (98-107) mmol/L Carbon Dioxide 22 (21-32) mmol/L Anion Gap 9 (3-11) BUN 9 (6-23) mg/dl Creatinine 0.98 (0.6-1.4) mg/dl Est Cr Clr Drug Dosing 170.3 ml/min Est GFR ( Amer) 114.5 ml/min Est GFR (Non-Af Amer) 98.8 ml/min BUN/Creatinine Ratio 9.2 L (10-20) Glucose 118 H (70-99(Fasting)) mg/dl Calcium 9.6 (8.5-10.1) mg/dl Total Bilirubin 0.3 (0.2-1.0) mg/dl AST 40 H (13-39) U/L ALT 61 H (7-52) U/L Alkaline Phosphatase 103 (34-104) U/L Total Protein 8.2 (6.0-8.3) gm/dl Albumin 4.6 (3.4-5.0) gm/dl Globulin 3.6 (2.5-4.0) gm/dl Albumin/Globulin Ratio 1.3 (0.9-2) TSH 1.862 (0.300-4.500) uIu/ml Urine Color Urine Appearance (Clear) Urine pH (4.5-7.5) Ur Specific [place] (1.000-1.030) Urine Protein (Negative) Urine Glucose (UA) (Negative) Urine Ketones (Negative) Urine Blood (Negative) Urine Nitrite (Negative) Urine Bilirubin (Negative) Urine Urobilinogen (Negative) Ur Leukocyte Esterase (Negative) Urine WBC (Auto) (0-5) /hpf Urine RBC (Auto) (0-4) /hpf U Hyaline Cast (Auto) (0-5) /lpf U Epithel Cells (Auto) (0-5) /lpf Urine Bacteria (Auto) (Negative) Ur Renal Epithelial Cell Salicylates (3.0-30) mg/dl Urine Opiates Screen (Neg) Ur Methadone, Qual (Neg) Acetaminophen (10-30) ug/ml Urine Barbiturates (Neg) Ur Phencyclidine (PCP) (Neg) U Amphetamin/Meth Scrn (Neg) MDMA (Ecstasy) Screen (Neg) U Benzodiazepines Scrn (Neg) Ur Cocaine Metabolite (Neg) U Marijuana (THC) Screen (Neg) Ethyl Alcohol mg/dL (<10.0) mg/dl SARS-CoV-2 (PCR) (Negative) Influenza Type A (PCR) (Neg) Influenza Type B (PCR) (Neg) RSV (RT-PCR) (Neg) 02/01/22 02/01/22 02/01/22 Range/Units 21:40 21:40 21:40 WBC (4.8-10.8) K/uL RBC (4.7-6.1) M/uL Hgb (14.0-18.0) g/dL Hct (42-52) % MCV (80-100) fL MCH (25-34) pg MCHC (32-36) g/dL RDW Std Deviation (36.4-46.3) fL RDW Coeff of Jackie (11.5-14.5) % Plt Count (130-400) K/uL MPV (7.4-10.4) fL Immature Gran % (Auto) % Neut % (Auto) % Lymph % (Auto) % [place] % (Auto) % Eos % (Auto) % Baso % (Auto) % Neut # (Auto) (1.4-6.5) K/uL Lymph # (Auto) (1.2-3.4) K/uL [place] # (Auto) (0.11-0.59) K/uL Eos # (Auto) (0-0.5) K/uL Baso # (Auto) (0-0.2) K/uL Immature Gran # (Auto) (0.00-0.02) K/uL Sodium (136-145) mmol/L Potassium (3.5-5.1) mmol/L Chloride (98-107) mmol/L Carbon Dioxide (21-32) mmol/L Anion Gap (3-11) BUN (6-23) mg/dl Creatinine (0.6-1.4) mg/dl Est Cr Clr Drug Dosing ml/min Est GFR ( Amer) ml/min Est GFR (Non-Af Amer) ml/min BUN/Creatinine Ratio (10-20) Glucose (70-99(Fasting)) mg/dl Calcium (8.5-10.1) mg/dl Total Bilirubin (0.2-1.0) mg/dl AST (13-39) U/L ALT (7-52) U/L Alkaline Phosphatase (34-104) U/L Total Protein (6.0-8.3) gm/dl Albumin (3.4-5.0) gm/dl Globulin (2.5-4.0) gm/dl Albumin/Globulin Ratio (0.9-2) TSH (0.300-4.500) uIu/ml Urine Color Dark Yellow Urine Appearance Clear (Clear) Urine pH 5.5 (4.5-7.5) Ur Specific [place] 1.032 H (1.000-1.030) Urine Protein Trace H (Negative) Urine Glucose (UA) Negative (Negative) Urine Ketones Trace H (Negative) Urine Blood Negative (Negative) Urine Nitrite Negative (Negative) Urine Bilirubin Negative (Negative) Urine Urobilinogen Negative (Negative) Ur Leukocyte Esterase Trace H (Negative) Urine WBC (Auto) 10-30 H (0-5) /hpf Urine RBC (Auto) 0-4 (0-4) /hpf U Hyaline Cast (Auto) 10-30 H (0-5) /lpf U Epithel Cells (Auto) >30 H (0-5) /lpf Urine Bacteria (Auto) Negative (Negative) Ur Renal Epithelial Cell Not Reportable Salicylates < 3.0 L (3.0-30) mg/dl Urine Opiates Screen (Neg) Ur Methadone, Qual (Neg) Acetaminophen < 3 L (10-30) ug/ml Urine Barbiturates (Neg) Ur Phencyclidine (PCP) (Neg) U Amphetamin/Meth Scrn (Neg) MDMA (Ecstasy) Screen (Neg) U Benzodiazepines Scrn (Neg) Ur Cocaine Metabolite (Neg) U Marijuana (THC) Screen (Neg) Ethyl Alcohol mg/dL < 10.0 (<10.0) mg/dl SARS-CoV-2 (PCR) (Negative) Influenza Type A (PCR) (Neg) Influenza Type B (PCR) (Neg) RSV (RT-PCR) (Neg) 02/01/22 02/01/22 Range/Units 21:40 21:40 WBC (4.8-10.8) K/uL RBC (4.7-6.1) M/uL Hgb (14.0-18.0) g/dL Hct (42-52) % MCV (80-100) fL MCH (25-34) pg MCHC (32-36) g/dL RDW Std Deviation (36.4-46.3) fL RDW Coeff of Jackie (11.5-14.5) % Plt Count (130-400) K/uL MPV (7.4-10.4) fL Immature Gran % (Auto) % Neut % (Auto) % Lymph % (Auto) % [place] % (Auto) % Eos % (Auto) % Baso % (Auto) % Neut # (Auto) (1.4-6.5) K/uL Lymph # (Auto) (1.2-3.4) K/uL [place] # (Auto) (0.11-0.59) K/uL Eos # (Auto) (0-0.5) K/uL Baso # (Auto) (0-0.2) K/uL Immature Gran # (Auto) (0.00-0.02) K/uL Sodium (136-145) mmol/L Potassium (3.5-5.1) mmol/L Chloride (98-107) mmol/L Carbon Dioxide (21-32) mmol/L Anion Gap (3-11) BUN (6-23) mg/dl Creatinine (0.6-1.4) mg/dl Est Cr Clr Drug Dosing ml/min Est GFR ( Amer) ml/min Est GFR (Non-Af Amer) ml/min BUN/Creatinine Ratio (10-20) Glucose (70-99(Fasting)) mg/dl Calcium (8.5-10.1) mg/dl Total Bilirubin (0.2-1.0) mg/dl AST (13-39) U/L ALT (7-52) U/L Alkaline Phosphatase (34-104) U/L Total Protein (6.0-8.3) gm/dl Albumin (3.4-5.0) gm/dl Globulin (2.5-4.0) gm/dl Albumin/Globulin Ratio (0.9-2) TSH (0.300-4.500) uIu/ml Urine Color Urine Appearance (Clear) Urine pH (4.5-7.5) Ur Specific [place] (1.000-1.030) Urine Protein (Negative) Urine Glucose (UA) (Negative) Urine Ketones (Negative) Urine Blood (Negative) Urine Nitrite (Negative) Urine Bilirubin (Negative) Urine Urobilinogen (Negative) Ur Leukocyte Esterase (Negative) Urine WBC (Auto) (0-5) /hpf Urine RBC (Auto) (0-4) /hpf U Hyaline Cast (Auto) (0-5) /lpf U Epithel Cells (Auto) (0-5) /lpf Urine Bacteria (Auto) (Negative) Ur Renal Epithelial Cell Salicylates (3.0-30) mg/dl Urine Opiates Screen Neg (Neg) Ur Methadone, Qual Neg (Neg) Acetaminophen (10-30) ug/ml Urine Barbiturates Neg (Neg) Ur Phencyclidine (PCP) Neg (Neg) U Amphetamin/Meth Scrn Neg (Neg) MDMA (Ecstasy) Screen Neg (Neg) U Benzodiazepines Scrn Neg (Neg) Ur Cocaine Metabolite Neg (Neg) U Marijuana (THC) Screen Neg (Neg) Ethyl Alcohol mg/dL (<10.0) mg/dl SARS-CoV-2 (PCR) POSITIVE A* (Negative) Influenza Type A (PCR) Negative (Neg) Influenza Type B (PCR) Negative (Neg) RSV (RT-PCR) Negative (Neg) Administered Medications Discontinued Medications Enoxaparin Sodium (Enoxaparin Inj 40 Mg/0.4 Ml Syr) 40 mg SQ Q12H ROBERT Stop: 03/04/22 05:59 Last Admin: 02/02/22 05:51 Dose: 40 mg Documented by: [id number] Lactated Ringer's (Lr) 1,000 mls @ 125 mls/hr IV .Q8H ROBERT Stop: 02/02/22 10:27 Last Infusion: 02/02/22 10:57 Dose: 0 mls/hr Documented by: [id number] Admin: 02/02/22 02:55 Dose: 125 mls/hr Documented by: [id number] Levetiracetam (Levetiracetam 500 Mg Tab) 1,000 mg PO ONE ONE Stop: 02/01/22 23:25 Last Admin: 02/01/22 23:58 Dose: 1,000 mg Documented by: [id number] Levetiracetam (Levetiracetam 500 Mg Tab) 1,000 mg PO BID ROBERT Stop: 03/04/22 08:59 Last Admin: 02/02/22 07:52 Dose: 1,000 mg Documented by: [id number] Discharge Plan Visit Data Chief Complaint: Mental Health Evaluation Stated Complaint: MENTAL HEALTH EVALUATION ED Provider: Vladimir Nicolas Discharge Problem: COVID-19, Suicidal ideation, Homicidal behavior Patient Disposition: Admitted As Inpatient Discharge Instructions Interventions: ED Discharge Assessment Last Done: 02/02/22 18:19
[2022-02-01 22:07] LABS: Basophils # (auto) 0.02 K/uL (0-0.2); Basophils % (auto) 0.2 %; Eosinophils # (auto) 0.13 K/uL (0-0.5); Eosinophils % (auto) 1.3 %; Hemoglobin 15.8 g/dL (14.0-18.0); Immature Granulocytes # (auto) 0.02 K/uL (0.00-0.02); Immature Granulocytes % (auto) 0.2 %; Lymphocytes # (auto) 3.18 K/uL (1.2-3.4); Lymphocytes % (auto) 32.4 %; Mean Corpuscular Hemoglobin 29.4 pg (25-34); Mean Corpuscular Hgb Conc 34.3 g/dL (32-36); Mean Corpuscular Volume 85.5 fL (80-100); Mean Platelet Volume 9.3 fL (7.4-10.4); Monocytes # (auto) 0.58 K/uL (0.11-0.59); Monocytes % (auto) 5.9 %; Neutrophils # (auto) 5.87 K/uL (1.4-6.5); Platelet Count 360 K/uL (130-400); RDW Coefficient of Variation 13.1 % (11.5-14.5); RDW Standard Deviation 41.1 fL (36.4-46.3); Red Blood Count 5.38 M/uL (4.7-6.1)
[2022-02-01 22:25] LABS: Acetaminophen < 3 ug/ml (10-30); Salicylate < 3.0 mg/dl (3.0-30)
[2022-02-01 22:27] LABS: Albumin Globulin Ratio 1.3 (0.9-2); Albumin Level 4.6 gm/dl (3.4-5.0); BUN Creatinine Ratio 9.2 (10-20); Bilirubin,Total 0.3 mg/dl (0.2-1.0); Calcium 9.6 mg/dl (8.5-10.1); Creatinine Clr Calc Pharmacy 170.3 ml/min; Est GFR (African American) 114.5 ml/min; Est GFR (Non-African American) 98.8 ml/min; Globulin 3.6 gm/dl (2.5-4.0); Total Protein 8.2 gm/dl (6.0-8.3)
[2022-02-01 22:31] LABS: Appearance Urine Clear (Clear); Bacteria Urine Automated Negative (Negative); Bilirubin Urine Negative (Negative); Blood Urine Negative (Negative); Color Urine Dark Yellow; Epithelial Cell Urine Auto >30 /lpf (0-5); Glucose Urine UA Negative (Negative); Ketones Urine Trace (Negative); Leukocyte Esterase Urine Trace (Negative); Nitrite Urine Negative (Negative); Protein Urine Trace (Negative); RBC Urine Automated 0-4 /hpf (0-4); Specific Gravity Urine 1.032 (1.000-1.030); Urobilinogen Urine Negative (Negative); pH Urine 5.5 (4.5-7.5)
[2022-02-01 22:45] LABS: Amphetamines+Metham, Urine Neg (Neg); Barbiturates, Urine Neg (Neg); Benzodiazepine, Urine Neg (Neg); Cocaine, Urine Neg (Neg); MDMA (Ecstacy), Urine Neg (Neg); Methadone, Urine Neg (Neg); Opiate, Urine Neg (Neg); Phencyclidine, Urine Neg (Neg)
[2022-02-01 23:02] LABS: Influenza A virus by PCR Negative (Neg); Influenza B virus by PCR Negative (Neg); RSV by PCR Negative (Neg)
[2022-02-01 23:06] LABS: SARS CoV2 RNA(COVID-19) InHosp POSITIVE (Negative)
[2022-02-01] MEDS ORDERED: levETIRAcetam 500 MG TAB PO ONE (23:24)
--- NOTE | 2022-02-02 00:12 | History & Physical Report ---
Date of Service February 02, 2022 Assessment & Plan (1) Suicidal ideation: Plan: 36yo male with history of PTSD, Anxiety and Seizure disorder presenting from homeless longterm with SI and thoughts of hurting staff members. Patient is frustrated and angry with staff at the homeless longterm because he feels that they are not taking his seizure disorder seriously and are unable/unwilling to provide him with additional support. He has had thoughts of self harm as well as thoughts of harming others in the longterm. Presently does not wish to harm himself. Patient is POSITIVE for Covid-19 (01/25/22 and 02/01/22). Symptoms began appx 01/22/22. He is presently asymptomatic - afebrile, no cough or SOB -Medical admission -Maintain suicide precautions -1:1 observation -Psychiatry consultation appreciated -Will need repeat Covid-19 testing for placement per Psych protocol (2) COVID-19: Plan: Patient is afebrile, no respiratory complaints, adequate oxygenation on room air. -Medical bed with isolation precautions -Should be able to discontinue isolation precautions after 9 days from first positive test -No indication for steroid, O2 treatment at this time - 95% on room air (3) Seizure disorder: Plan: Patient with recent seizure. -Continue Keppra - 1500mg qAM and 1000mg qHS History of Present Illness Chief Complaint: SI/HI Primary Care Provider: Walt Liu MD Edgardo Mustafa is a 36yo male with history of PTSD, Anxiety and Seizure disorder presenting with suicidal and homicidal ideation. Patient was recently admitted to [facility] 01/25/22 - 01/26/22 with rhabdomyolysis, breakthrough seizure and Covid-19 infection. His Covid symptoms began on or around 01/22/22 - sore throat, SOB, cough and congestion as well as fevers and generalized pain. He initially tested POSITIVE for Covid-19 on 01/25/22. Patient returned to his homeless longterm after discharge. He reports the director and staff at the longterm do not take his Seizure disorder seriously. He reports having a bed in the basement without any close staff members or monitoring. He asked for more support and observation from the staff and was told that they were unable to provide him with that. Patient has become increasingly angry with staff at the homeless longterm. He has had thoughts of hurting himself as well as thoughts of hurting the staff members at the longterm. He feels very angry and frustrated with the situation at the longterm. No additional complaints at this time. Patient denies fever, chills, cough, SOB, chest pain, abdominal pain, nausea, vomiting, diarrhea or constipation. ER Course: Luisa Allergies Allergy/AdvReac Type Severity Reaction Status Date / Time No Known Allergies Allergy Verified 02/02/22 00:41 Home Medications Medication Instructions Recorded Confirmed Type levetiracetam 1,000 mg tablet 1,000 mg PO HS 01/20/22 02/02/22 History levetiracetam 500 mg tablet 1,500 mg PO QAM 02/02/22 02/02/22 History Past Med/Surg History Medical History (Updated 02/02/22 @ 00:44 by Edel Colindres DO) Seizure disorder Surgical History (Updated 02/02/22 @ 00:44 by Edel Colindres DO) No significant past surgical history Social History Smoking Status: Never smoker Hx Alcohol Use: No Hx Substance Use: No Preferred Language: Arabic Communication Ability: Effective School Age Program Associate Required: No Beliefs That Will Affect Care: None Current Living Situation: Other Current Living Situation Comment: lives in a longterm Feels Safe at Home: Yes Assistive Devices: None Review of Systems Review of Systems: General: Patient denies fevers, chills, malaise, weight loss or weight gain Skin: Patient denies bruising, bleeding or rash HEENT: Patient denies headache, visual changes, sore throat, difficulty swallowing, stiff neck Cardio: Patient denies chest pain, palpitations, shortness of breath, lightheadedness Pulmonary: Patient denies cough, wheeze GI: Patient denies abdominal pain, nausea, vomiting, diarrhea, constipation : Patient denies dysuria, frequency, urgency or hematuria Musculoskeletal: Patient denies swelling or pain of the joints, edema Neuro: Patient denies numbness, tingling, weakness or falls Psych: Patient denies depression, anxiety Physical Exam Physical Exam: General: patient resting comfortably, NAD, non-toxic in appearance, AA&O x 4 Skin: warm, dry, intact, no rashes or lesions HEENT: NC/AT, PERRL, EOMI, anicteric sclera, conjunctiva without injection, external ear normal to inspection and nontender, nares patent, moist mucus membranes, dentition intact, no oropharyngeal lesions, neck supple, trachea midline, no LAD, no thyromegaly, no JVD Heart: +S1/S2, regular, no m/r/g Lungs: equal air entry bilaterally, no rales/rhonchi/wheezes Abd: +BS, soft, NT/ND, no masses/organomegaly/ascites Ext: warm, 2+ pulses in UE/LE bilaterally, no clubbing/cyanosis or edema Neuro: nonfocal, patient AA&O x 4, speech intact, no facial droop, moving all extremities on command with equal strength 5/5 Results & Data Results & Data ([facility]) Vital Signs (Past 12 Hours) Vital Signs Temp Pulse Pulse Resp BP BP Pulse Ox 02/01/22 23:22 37 C 96 H 16 143/83 H 95 02/01/22 21:01 114 H 18 177/105 H 91 Laboratory Results Laboratory Results WBC 9.80 K/uL (4.8-10.8) 02/01/22 21:40 RBC 5.38 M/uL (4.7-6.1) 02/01/22 21:40 Hgb 15.8 g/dL (14.0-18.0) 02/01/22 21:40 Hct 46.0 % (42-52) 02/01/22 21:40 MCV 85.5 fL (80-100) 02/01/22 21:40 MCH 29.4 pg (25-34) 02/01/22 21:40 MCHC 34.3 g/dL (32-36) 02/01/22 21:40 RDW Std Deviation 41.1 fL (36.4-46.3) 02/01/22 21:40 RDW Coeff of Jackie 13.1 % (11.5-14.5) 02/01/22 21:40 Plt Count 360 K/uL (130-400) 02/01/22 21:40 MPV 9.3 fL (7.4-10.4) 02/01/22 21:40 Immature Gran % (Auto) 0.2 % 02/01/22 21:40 Neut % (Auto) 60.0 % 02/01/22 21:40 Lymph % (Auto) 32.4 % 02/01/22 21:40 [place] % (Auto) 5.9 % 02/01/22 21:40 Eos % (Auto) 1.3 % 02/01/22 21:40 Baso % (Auto) 0.2 % 02/01/22 21:40 Neut # (Auto) 5.87 K/uL (1.4-6.5) 02/01/22 21:40 Lymph # (Auto) 3.18 K/uL (1.2-3.4) 02/01/22 21:40 [place] # (Auto) 0.58 K/uL (0.11-0.59) 02/01/22 21:40 Eos # (Auto) 0.13 K/uL (0-0.5) 02/01/22 21:40 Baso # (Auto) 0.02 K/uL (0-0.2) 02/01/22 21:40 Immature Gran # (Auto) 0.02 K/uL (0.00-0.02) 02/01/22 21:40 Sodium 136 mmol/L (136-145) 02/01/22 21:40 Potassium 4.0 mmol/L (3.5-5.1) 02/01/22 21:40 Chloride 105 mmol/L (98-107) 02/01/22 21:40 Carbon Dioxide 22 mmol/L (21-32) 02/01/22 21:40 Anion Gap 9 (3-11) 02/01/22 21:40 BUN 9 mg/dl (6-23) 02/01/22 21:40 Creatinine 0.98 mg/dl (0.6-1.4) 02/01/22 21:40 Est Cr Clr Drug Dosing 170.3 ml/min 02/01/22 21:40 Est GFR ( Amer) 114.5 ml/min 02/01/22 21:40 Est GFR (Non-Af Amer) 98.8 ml/min 02/01/22 21:40 BUN/Creatinine Ratio 9.2 (10-20) L 02/01/22 21:40 Glucose 118 mg/dl (70-99(Fasting)) H 02/01/22 21:40 Calcium 9.6 mg/dl (8.5-10.1) 02/01/22 21:40 Total Bilirubin 0.3 mg/dl (0.2-1.0) 02/01/22 21:40 AST 40 U/L (13-39) H 02/01/22 21:40 ALT 61 U/L (7-52) H 02/01/22 21:40 Alkaline Phosphatase 103 U/L (34-104) 02/01/22 21:40 Total Protein 8.2 gm/dl (6.0-8.3) 02/01/22 21:40 Albumin 4.6 gm/dl (3.4-5.0) 02/01/22 21:40 Globulin 3.6 gm/dl (2.5-4.0) 02/01/22 21:40 Albumin/Globulin Ratio 1.3 (0.9-2) 02/01/22 21:40 TSH 1.862 uIu/ml (0.300-4.500) 02/01/22 21:40 Urine Color Dark Yellow 02/01/22 21:40 Urine Appearance Clear (Clear) 02/01/22 21:40 Urine pH 5.5 (4.5-7.5) 02/01/22 21:40 Ur Specific [place] 1.032 (1.000-1.030) H 02/01/22 21:40 Urine Protein Trace (Negative) H 02/01/22 21:40 Urine Glucose (UA) Negative (Negative) 02/01/22 21:40 Urine Ketones Trace (Negative) H 02/01/22 21:40 Urine Blood Negative (Negative) 02/01/22 21:40 Urine Nitrite Negative (Negative) 02/01/22 21:40 Urine Bilirubin Negative (Negative) 02/01/22 21:40 Urine Urobilinogen Negative (Negative) 02/01/22 21:40 Ur Leukocyte Esterase Trace (Negative) H 02/01/22 21:40 Urine WBC (Auto) 10-30 /hpf (0-5) H 02/01/22 21:40 Urine RBC (Auto) 0-4 /hpf (0-4) 02/01/22 21:40 U Hyaline Cast (Auto) 10-30 /lpf (0-5) H 02/01/22 21:40 U Epithel Cells (Auto) >30 /lpf (0-5) H 02/01/22 21:40 Urine Bacteria (Auto) Negative (Negative) 02/01/22 21:40 Ur Renal Epithelial Cell Not Reportable 02/01/22 21:40 Salicylates < 3.0 mg/dl (3.0-30) L 02/01/22 21:40 Urine Opiates Screen Neg (Neg) 02/01/22 21:40 Ur Methadone, Qual Neg (Neg) 02/01/22 21:40 Acetaminophen < 3 ug/ml (10-30) L 02/01/22 21:40 Urine Barbiturates Neg (Neg) 02/01/22 21:40 Ur Phencyclidine (PCP) Neg (Neg) 02/01/22 21:40 U Amphetamin/Meth Scrn Neg (Neg) 02/01/22 21:40 MDMA (Ecstasy) Screen Neg (Neg) 02/01/22 21:40 U Benzodiazepines Scrn Neg (Neg) 02/01/22 21:40 Ur Cocaine Metabolite Neg (Neg) 02/01/22 21:40 U Marijuana (THC) Screen Neg (Neg) 02/01/22 21:40 Ethyl Alcohol mg/dL < 10.0 mg/dl (<10.0) 02/01/22 21:40 SARS-CoV-2 (PCR) POSITIVE (Negative) A* 02/01/22 21:40 Influenza Type A (PCR) Negative (Neg) 02/01/22 21:40 Influenza Type B (PCR) Negative (Neg) 02/01/22 21:40 RSV (RT-PCR) Negative (Neg) 02/01/22 21:40 Code Status & VTE Plan VTE Prophylaxis Plan VTE Prophylaxis will be ordered: Yes PG Care Time/CCT Total # of Minutes Spent Total Time Spent with Patient: Total time spent is greater than 50% in coordination of care (as documented) at patient's floor/unit and/or counseling patient: Coding Level of Care Code 95756 Initial Inpt Care Lvl 2 Diagnoses COVID-19 U07.1 Seizure disorder G40.909 Suicidal ideation R45.85
[2022-02-02] MEDS ORDERED: ACETAMINOPHEN 325 MG TAB PO PRN (02:28)
[2022-02-02] MEDS ORDERED: LACTATED RINGER'S 1,000 ML IV SCH (02:28)
[2022-02-02] MEDS ORDERED: ONDANSETRON INJ 2 MG/ML 2 ML VIAL IV PRN (02:28)
[2022-02-02] MEDS ORDERED: ENOXAPARIN INJ 40 MG/0.4 ML SYR SQ SCH (06:00)
[2022-02-02] MEDS: levETIRAcetam 500 MG TAB PO SCH ×2 (07:45→07:52)
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
--- NOTE | 2022-02-02 14:55 | Discharge Summary ---
Date of Service February 02, 2022 Admission HPI Per Admitting Provider Edgardo Mustafa is a 36yo male with history of PTSD, Anxiety and Seizure disorder presenting with suicidal and homicidal ideation. Patient was recently admitted to [facility] 01/25/22 - 01/26/22 with rhabdomyolysis, breakthrough seizure and Covid-19 infection. His Covid symptoms began on or around 01/22/22 - sore throat, SOB, cough and congestion as well as fevers and generalized pain. He initially tested POSITIVE for Covid-19 on 01/25/22. Patient returned to his homeless detention after discharge. He reports the director and staff at the detention do not take his Seizure disorder seriously. He reports having a bed in the basement without any close staff members or monitoring. He asked for more support and observation from the staff and was told that they were unable to provide him with that. Patient has become increasingly angry with staff at the homeless detention. He has had thoughts of hurting himself as well as thoughts of hurting the staff members at the detention. He feels very angry and frustrated with the situation at the detention. No additional complaints at this time. Patient denies fever, chills, cough, SOB, chest pain, abdominal pain, nausea, vomiting, diarrhea or constipation. ER Course: Keppra Discharge Data Allergies Allergy/AdvReac Type Severity Reaction Status Date / Time Fish Containing Products AdvReac Mild throws up Verified 02/02/22 12:51 Consultations 02/01/22 23:22 ED Decision to Admit Stat 02/02/22 02:28 Consult Psychiatry Routine Discharge Plan Discharge Items Patient Disposition: Home - Self-Care Reason For Visit: HOMICIDAL IDEATION Discharge Diagnosis: Adjustment disorder Activity: Resume your previous activity Non-emergency contact: Primary Care Provider Call non-emergency contact if: you have any medication questions and your symptoms worsen Follow-up/Referrals: Walt Liu MD [Primary Care Provider] - Diet: Regular Addtl Attending Provider Instructions: You were admitted to [facility] on February 02, 2022 due to suicidal and homicidal ideation. You were admitted under the medical team due to SARS-COV-2 PCR test positive although this was also previously positive on January 25 and you are experiencing no symptoms at this time. You were cleared by psychiatry the same day and no new psychiatric medications were recommended a this time. Please continue on your usual anti-seizure medication of Keppra. Pending Studies at Discharge: No Stand-Alone Forms: [facility], Smoking Cessation Medications and DC Order Prescriptions: Continued levetiracetam 1,000 mg tablet 1,000 mg PO HS RF: 0 levetiracetam 500 mg tablet 1,500 mg PO QAM RF: 0 Discharge Orders: Discharge Order (Routine); Ordered 02/02/22 Ordered By: Ben Newton Admission Data Admit Date/Time: 02/02/22 00:10 Attending Provider: Ben Newton Admit Provider: Edel Colindres Primary Care Provider: Walt Liu Other Providers: Edel Colindres ; Ankita Vang ; Wendy Neely ; Marlyn Hill Coding
== END 2022-02-02 15:15 | disposition home or self-care (01) | DRG 178 ==
LOC: ED 20:59 → SUATTDRO 02-02 00:10 → INTOOBSV 02-02 00:10 → EDINP 02-02 00:10